=== PATIENT | male | born 2000 | race Caucasian/White ===

== ENCOUNTER 2024-07-11 13:38 | Emergency (ER) | payer OTHER, SELFPAY ==
[2024-07-11 13:42] VITALS: BP 137/88; PULSE 72; RESP 18; TEMP 37.2; O2SAT 99; BMI 29.5
[2024-07-11 14:09] VITALS: BP 136/85; BP 146/92; PULSE 72; RESP 18; TEMP 37.5; O2SAT 96
--- NOTE | 2024-07-11 14:10 | ED.GENADULT ---
HPI - General Adult General Chief complaint: Extremity Pain/Injury, Upper Stated complaint: Left arm injury - pain/numbness Time Seen by Provider: 07/11/24 13:51 Source: patient Mode of arrival: ambulatory Limitations: no limitations History of Present Illness HPI narrative: 23-year-old male coming in today complaining of arm pain that has been going on for 2 months. 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 He has been working with [facility] to get evaluated. He has already been seen for this. He comes in today because he woke up this morning and his arm was purple in color. This lasted for short amount of time and then the arm went back to normal color. He states that he has numbness from the elbow all the way to the fingertips especially fingers or and 5, however today he felt numbness go up into the upper arm as well. He denies any systemic symptoms. Related Data Home Medications ?Medication ?Instructions ?Recorded ?Confirmed naproxen 500 mg tablet 500 mg PO Q12H PRN pain 07/11/24 07/11/24 Allergies Allergy/AdvReac Type Severity Reaction Status Date / Time No Known Drug Allergies Allergy Verified 07/11/24 13:47 Review of Systems Status of ROS: Reports: 6 or more systems reviewed and unremarkable except as noted in History and below Exam Narrative: Exam Narrative: Well-nourished well-developed patient in no acute distress. Alert and oriented. Answers questions appropriately. Mood and affect are appropriate. Thoughts are goal oriented and rational. No tangential or magical thinking noted. Patient speaks in full sentences without needing to catch his breath. HEENT: Normocephalic atraumatic. Pupils are equally round reactive to light. Extraocular muscles are intact. Conjunctivae are moist without any icterus noted. Moist mucous membranes. Extremities: Upper extremities have normal coloring. Normal radial pulse on the left. Normal capillary refill. Hand nuclear medicine technician is normal and symmetric. Patient has no tenderness to palpation over the hand, forearm or elbow. He has full range of motion at the elbow. There is no tenderness or swelling of the upper arm. Const: Vital Signs, click to edit/add: Vital Signs - 24 hr 07/11/24 13:42 Temperature 99 F Pulse Rate [Pulse Oximeter] 72 Respiratory Rate 18 Blood Pressure [Ri ght Upper Arm] 137/88 Pulse Oximetry 99 Oxygen Delivery Me thod Room Air Course Course ED Course: Blood pressure was taken on both arms thought significant discrepancy. Vital Signs Vital signs: Initial Vital Signs Temperature 99 F 07/11/24 13:42 Temperature Source Temporal Artery Scan 07/11/24 13:42 Pulse Rate 72 07/11/24 13:42 Respiratory Rate 18 07/11/24 13:42 Blood Pressure 137/88 07/11/24 13:42 Blood Pressure Mean 104 07/11/24 13:42 Blood Pressure Position Supine 07/11/24 13:42 Pulse Oximetry 99 07/11/24 13:42 Oxygen Delivery Method Room Air 07/11/24 13:42 Vital Signs Temperature 99 F 07/11/24 13:42 Pulse Rate 72 07/11/24 13:42 Respiratory Rate 18 07/11/24 13:42 Blood Pressure 137/88 07/11/24 13:42 Pulse Oximetry 99 07/11/24 13:42 Oxygen Delivery Method Room Air 07/11/24 13:42 Temperature 99 F 07/11/24 13:42 Pulse Rate 72 07/11/24 13:42 Respiratory Rate 18 07/11/24 13:42 Blood Pressure 137/88 07/11/24 13:42 Pulse Oximetry 99 07/11/24 13:42 Oxygen Delivery Method Room Air 07/11/24 13:42 Medical Decision Making MDM Narrative Medical decision making narrative: 23-year-old male with arm injury. Unsure if he was slept on his arm wrong this morning causing it to have decreased circulation, again this completely resolved shortly after getting out of bed. Recommend sleeping with an Thai wrap at the elbow so the arm can't bend. Patient does have an appointment with an orthopedic surgeon in 3 days. It is recommended he keep this appointment. Discharge Plan Discharge Clinical Impression: Arm injury Patient Disposition: Home, Self-Care Condition: Stable Additional Instructions: Recommend wearing an Thai wrap around the elbow at night, not too tight, in order to prevent bending of the elbow while sleeping. Follow-up with orthopedics as scheduled. Prescriptions: No Action naproxen 500 mg tablet 500 mg PO Q12H PRN (Reason: pain) Follow Up/Referrals: Provider,Not a Local [Primary Care Provider] - Stand Alone Forms: [employer] Info Instructions
== END 2024-07-11 14:38 | disposition home or self-care (01) ==
LOC: ED 14:21
PROVIDERS: Emergency Provider Family Medicine
DX: S49.92XA Unspecified injury of left shoulder and upper arm, initial encounter (principal); X50.3XXA Overexertion from repetitive movements, initial encounter; Y99.0 Civilian activity done for income or pay
CPT/HCPCS: 99282; 99283